=== PATIENT | female | born 1970 | race African-American/Black ===

== ENCOUNTER 2016-11-22 11:40 | Emergency (ER) | payer BC ==
[~2016-11-22] VITALS: Ht 172.7 cm; Wt 160.0 kg
[~2016-11-22 11:40] MED LIST: ATOR40TA70 PO; GLIP5TAB12 PO; LEVO125T8 PO; LISI10TA5 PO; MELO-58 PO; METF500T4 PO; NOVOLOG 70/30 SQ; P20 PO; RANI150C12 PO
[2016-11-22 14:44] VITALS: BP 162/88
== END 2016-11-22 16:35 | disposition home or self-care (01) ==
LOC: ER 11:41
DX: L02.416 Cutaneous abscess of left lower limb (principal); E03.9 Hypothyroidism, unspecified; J45.909 Unspecified asthma, uncomplicated; E11.9 Type 2 diabetes mellitus without complications; Z87.891 Personal history of nicotine dependence; Z79.899 Other long term (current) drug therapy
CPT/HCPCS: 81025; 99283

== ENCOUNTER 2018-08-22 13:29 | Emergency (ER) | payer SELFPAY ==
[~2018-08-22] VITALS: Ht 172.7 cm; Wt 145.0 kg
[~2018-08-22 13:29] MED LIST changes: +MELO-106 PO; -MELO-58 PO; +METF-414 PO; -METF500T4 PO
[2018-08-22 17:16] VITALS: BP 162/79
== END 2018-08-22 23:37 | disposition left against medical advice (07) ==
LOC: ER 13:29
DX: Z53.21 Procedure and treatment not carried out due to patient leaving prior to being seen by health care provider (principal); J45.909 Unspecified asthma, uncomplicated; E11.9 Type 2 diabetes mellitus without complications; E03.9 Hypothyroidism, unspecified; F17.200 Nicotine dependence, unspecified, uncomplicated

== ENCOUNTER 2020-01-23 02:02 | Emergency (ER) | payer MEDICAID ==
[~2020-01-23] VITALS: Ht 175.3 cm; Wt 154.0 kg
[2020-01-23] MEDS ORDERED: HYDROCODONE/ACETAMINOPHEN 5/325MG TABLET PO STA (02:57)
[2020-01-23] MEDS ORDERED: KETOROLAC 60MG/2ML VIAL IM STA (02:57)
[2020-01-23 03:25] LABS: CLARITY URINE CLEAR (CLEAR); COLOR URINE YELLOW (YELLOW); KETONES URINE NEGATIVE (NEGATIVE); LEUKOCYTE ESTERASE URINE NEGATIVE (NEGATIVE); NITRITE URINE NEGATIVE (NEGATIVE); OCCULT BLOOD URINE NEGATIVE (NEGATIVE); PROTEIN URINE 3+ (NEGATIVE); SPECIFIC GRAVITY URINE 1.029 (1.005-1.030); UROBILINOGEN URINE 0.2 E.U./dL (0.2-1.0)
[2020-01-23 05:25] VITALS: BP 138/83
== END 2020-01-23 05:27 | disposition home or self-care (01) ==
LOC: ER 02:02
DX: S39.012A Strain of muscle, fascia and tendon of lower back, initial encounter (principal); J45.909 Unspecified asthma, uncomplicated; E11.9 Type 2 diabetes mellitus without complications; Z79.899 Other long term (current) drug therapy; X58.XXXA Exposure to other specified factors, initial encounter; Y93.89 Activity, other specified; Y92.89 Other specified places as the place of occurrence of the external cause; Y99.8 Other external cause status
CPT/HCPCS: 72100; 81003; 81025; 96372; 99284; J1885

== ENCOUNTER 2022-10-03 20:00 | Emergency (ER) | payer MEDICAID ==
[~2022-10-03] VITALS: Ht 172.7 cm; Wt 137.0 kg
[~2022-10-03 20:00] MED LIST changes: +LISI10TA26 PO; -LISI10TA5 PO
[2022-10-03 21:07] LABS: BASOPHILS % 0.7 % (0.0-2.0); EOSINOPHILS % 3.4 % (0.0-5.0); HEMATOCRIT. 37.9 % (36.0-48.0); HEMOGLOBIN. 12.8 g/dL (12.0-16.0); LYMPHOCYTES % 33.8 % (20.0-50.0); MEAN CORPUSCULAR HEMOGLOBIN 28.7 pg (28.0-32.0); MEAN PLATELET VOLUME 9.6 fl (7.4-10.4); MONOCYTES % 7.6 % (2.0-8.0); NEUTROPHILS % 54.5 % (40.0-76.0); PLATELET 199 x1000/uL (130-400); RED BLOOD CELL COUNT 4.46 mill/uL (4.2-5.4); RED CELL DISTRIBUTION WIDTH 16.5 % (11.6-14.6)
[2022-10-03 21:20] LABS: CHLORIDE 106 mEq/L (98-107)
[2022-10-04 03:45] LABS: CLARITY URINE CLEAR (CLEAR); COLOR URINE YELLOW (YELLOW); KETONES URINE TRACE (NEGATIVE); LEUKOCYTE ESTERASE URINE NEGATIVE (NEGATIVE); NITRITE URINE POSITIVE (NEGATIVE); OCCULT BLOOD URINE 1+ (NEGATIVE); PH URINE 5.5 (4.5-8.0); PROTEIN URINE 4+ (NEGATIVE); SPECIFIC GRAVITY URINE 1.021 (1.005-1.030); UROBILINOGEN URINE 0.2 E.U./dL (0.2-1.0)
[2022-10-04] MEDS ORDERED: KETOROLAC 30MG/ML VIAL IV STA (05:17)
[2022-10-04 06:31] LABS: HCG SCREEN NEGATIVE
[2022-10-04] MEDS ORDERED: TOPUD PO (06:35)
[2022-10-04] MEDS ORDERED: NITR100C PO (06:35)
[2022-10-04 07:30] VITALS: BP 153/72
[2022-10-04] MEDS ORDERED: IPRATROPIUM BROMIDE (0.02%) 0.5MG/2.5ML NEB HHN STA (08:02)
[2022-10-04] MEDS ORDERED: ALBUTEROL (0.083%) 2.5MG/3ML NEB HHN STA (08:02)
== END 2022-10-04 09:03 | disposition home or self-care (01) ==
LOC: ER 20:00
DX: K43.9 Ventral hernia without obstruction or gangrene (principal); N39.0 Urinary tract infection, site not specified; R06.02 Shortness of breath
CPT/HCPCS: 36415; 71045; 74176; 80053; 81003; 83880; 84484; 84703; 85025; 87086; 93005; 94640; 99285; J1885; Z7610; 96374